=== PATIENT | female | born 1990 ===

== ENCOUNTER 2021-08-06 07:26 | Emergency (ER) | payer SELFPAY ==
[2021-08-06 08:51] LABS: HEMOGLOBIN 14.4 gm/dl (12.3-15.3); RED BLOOD COUNT 5.64 M/UL (4.00-5.10); WHITE BLOOD COUNT 5.7 K/UL (4.5-11.0)
[2021-08-06 09:08] LABS: BUN/CREATININE RATIO 12 (0-10)
[2021-08-06] MEDS ORDERED: ZOFRAN 4 MG TAB4 MG PO (10:57)
== END 2021-08-06 11:30 | disposition home or self-care (01) ==
LOC: ER1 07:26
PROVIDERS: Emergency Medicine
DX: J06.9 Acute upper respiratory infection, unspecified (principal); R10.9 Unspecified abdominal pain; R11.10 Vomiting, unspecified; R19.7 Diarrhea, unspecified; R73.9 Hyperglycemia, unspecified; Z20.822 Contact with and (suspected) exposure to COVID-19
CPT/HCPCS: 71045; 80053; 81001; 83690; 84703; 85025; 93005; 96374; 99284; J2405; U0002

== ENCOUNTER 2021-08-25 11:15 | Emergency (ER) | payer SELFPAY ==
[~2021-08-25 11:15] MED LIST: ZOFRAN 4 MG TAB4 MG PO
== END 2021-08-25 12:09 | disposition home or self-care (01) ==
LOC: ER1 11:15
DX: U07.1 COVID-19 (principal); Z91.040 Latex allergy status
CPT/HCPCS: 99283; U0002